=== PATIENT | male | born 1960 | race Caucasian/White ===

== ENCOUNTER → 2018-11-08 | Outpatient (CLI) | payer OTHER ==
[~2018-11-08] MED LIST: No meds per pt.
[2018-11-08 15:41] LABS: BASOPHILS # (AUTO) 0.03 x10^3/uL (0-0.1); BASOPHILS % (AUTO) 1 % (0-1); EOSINOPHILS # (AUTO) 0.47 x10^3/uL (0-0.4); EOSINOPHILS % (AUTO) 8 % (1-7); LYMPHOCYTES # (AUTO) 1.65 x10^3/uL (1-3.4); LYMPHOCYTES % (AUTO) 29 % (22-44); MD NO; MEAN CORPUSCULAR HEMOGLOBIN 31.4 pg (27.5-34.5); MEAN CORPUSCULAR VOLUME 92.4 fL (81-97); MEAN PLATELET VOLUME 7.6 fL (7.4-10.4); MONOCYTES # (AUTO) 0.51 x10^3/uL (0.2-0.8); MONOCYTES % (AUTO) 9 % (2-9); NEUTROPHILS # (AUTO) 3.09 x10^3/uL (1.8-6.8); NEUTROPHILS % (AUTO) 54 % (42-75); PLATELET COUNT 290 x10^3/uL (130-400); RED BLOOD COUNT 4.68 x10^6/uL (4.38-5.82); RED CELL DISTRIBUTION WIDTH 13.2 % (9.4-14.8)
[2018-11-08 15:51] LABS: ALANINE AMINOTRANSFERASE 34 U/L (12-78); ANION GAP 6 mmol/L (5-15); CALCIUM 8.8 mg/dL (8.5-10.1); CHLORIDE 108 mmol/L (98-107); CREATININE 0.95 mg/dL (0.7-1.3)
[2018-11-08 15:56] LABS: ALKALINE PHOSPHATASE 100 U/L (45-117); BILIRUBIN,TOTAL 0.5 mg/dL (0.2-1.0); TOTAL PROTEIN 7.3 g/dL (6.4-8.2)
== END | disposition home or self-care (01) ==
LOC: STAR 14:52
PROVIDERS: ATTEND Surgery
DX: Z01.818 Encounter for other preprocedural examination (principal)
CPT/HCPCS: 36415; 80053; 82378; 85025; 93005

== ENCOUNTER 2018-11-15 10:24 | Inpatient (IN) | payer OTHER ==
[~2018-11-15] VITALS: Ht 188 cm; Wt 90.0 kg
[~2018-11-15 10:24] MED LIST changes: +BUPIVACAINE/PF 0.5% ONE; +FENTANYL PF 250 MCG/5ML ONE; +MIDAZOLAM 1 MG/ML, 2ML ONE; +SUGAMMADEX 200 MG/2 ML IVPush ONE
[2018-11-15] MEDS ORDERED: LACTATED RINGERS 1,000 ML IV SCH (10:49)
[2018-11-15 10:55] VITALS: BP 113/73
[2018-11-15] MEDS ORDERED: GABAPENTIN 300 MG CAPSULE PO ONE (11:30)
[2018-11-15] MEDS ORDERED: ACETAMINOPHEN 500 MG TABLET PO ONE (11:30)
[2018-11-15] MEDS ORDERED: FAMOTIDINE 20 MG TABLET PO ONE (11:30)
[2018-11-15] MEDS ORDERED: CEFOTETAN 2 GM ONE (11:36)
[2018-11-15] MEDS ORDERED: PROPOFOL 10 MG/ML, 20ML ONE (11:36)
[2018-11-15] MEDS ORDERED: ROCURONIUM 10 MG/ML,10ML ONE (11:36)
[2018-11-15] MEDS ORDERED: ONDANSETRON 2MG/ML, 2ML ONE (11:36)
[2018-11-15] MEDS ORDERED: SUCCINYLCHOLINE 20 MG/ML, 10ML ONE (11:36)
[2018-11-15] MEDS ORDERED: DEXAMETHASONE 4 MG/ML, 1ML ONE (11:36)
[2018-11-15] MEDS ORDERED: PROMETHAZINE 25 MG/ML, 1ML IV PRN (12:30)
[2018-11-15] MEDS ORDERED: ONDANSETRON 2MG/ML, 2ML IV PRN ×2 (12:30→15:00)
[2018-11-15] MEDS ORDERED: ONDANSETRON ODT 8 MG PO PRN (12:30)
[2018-11-15] MEDS ORDERED: OXYcodone 5 MG/5 ML ORAL.SOL UDC PO PRN (12:30)
[2018-11-15] MEDS ORDERED: LORazepam 2 MG/ML, 1ML IVPush PRN ×2 (12:30→15:00)
[2018-11-15] MEDS ORDERED: FENTANYL PF 100 MCG/2ML ONE (13:11)
[2018-11-15] MEDS ORDERED: OXYcodone 5 MG/5 ML ORAL.SOL UDC ONE (13:11)
[2018-11-15] MEDS: FENTANYL PF 100 MCG/2ML IV PRN ×2 (13:18→13:25)
[2018-11-15] MEDS ORDERED: HYDROmorphone 1 MG/ML, 1ML ONE (13:55)
[2018-11-15] MEDS: HYDROmorphone 2 MG/ML, 1ML IVPush PRN ×2 (13:57→14:04)
[2018-11-15] MEDS ORDERED: HALOPERIDOL 5 MG/ML IVPush PRN (15:00)
[2018-11-15] MEDS ORDERED: CALCIUM CARBONATE 500 MG TAB.CHEW PO PRN (15:00)
[2018-11-15] MEDS ORDERED: OXYcodone IR 5MG TABLET PO PRN ×2 (15:00)
[2018-11-15] MEDS ORDERED: DIPHENHYDRAMINE 25 MG CAPSULE PO PRN (15:00)
[2018-11-15] MEDS ORDERED: SCOPOLAMINE PATCH, 1.5MG PATCH.TD72 TD PRN (15:00)
[2018-11-15] MEDS ORDERED: DIPHENHYDRAMINE 50 MG/ML, 1ML IVPush PRN (15:00)
[2018-11-15] MEDS ORDERED: DEXAMETHASONE 4 MG/ML, 1ML IVPush PRN (15:00)
[2018-11-15] MEDS ORDERED: HYDROmorphone 1 MG/ML, 1ML IVPush PRN (15:00)
[2018-11-15] MEDS: IBUPROFEN 800 MG TABLET PO SCH ×2 (15:30→23:18)
[2018-11-15] MEDS: ACETAMINOPHEN 500 MG TABLET PO SCH ×3 (15:30→23:18)
[2018-11-15 15:34] VITALS: BP 108/64
[2018-11-15] MEDS: D5%-0.45NACL+KCL 20MEQ 1,000 ML IV SCH (17:23)
[2018-11-15 19:33] VITALS: BP 93/57
[2018-11-15 22:00] VITALS: BP 69/45
[2018-11-15] MEDS: LORazepam 1MG TABLET PO PRN (23:22)
[2018-11-16 00:49] VITALS: BP 97/62
[2018-11-16 03:06] LABS: BASOPHILS % (AUTO) 0 % (0-1); EOSINOPHILS % (AUTO) 0 % (1-7); LYMPHOCYTES % (AUTO) 8 % (22-44); MD NO; MEAN CORPUSCULAR HEMOGLOBIN 31.9 pg (27.5-34.5); MEAN PLATELET VOLUME 7.9 fL (7.4-10.4); MONOCYTES # (AUTO) 0.64 x10^3/uL (0.2-0.8); MONOCYTES % (AUTO) 7 % (2-9); NEUTROPHILS % (AUTO) 85 % (42-75); PLATELET COUNT 247 x10^3/uL (130-400); RED CELL DISTRIBUTION WIDTH 13.2 % (9.4-14.8)
[2018-11-16 03:12] LABS: ANION GAP 3 mmol/L (5-15); CALCIUM 8.3 mg/dL (8.5-10.1); CHLORIDE 107 mmol/L (98-107); CREATININE 1.05 mg/dL (0.7-1.3)
[2018-11-16 04:28] VITALS: BP 99/60
[2018-11-16] MEDS: D5%-0.45NACL+KCL 20MEQ 1,000 ML IV SCH ×2 (05:18→17:56)
[2018-11-16] MEDS: ACETAMINOPHEN 500 MG TABLET PO SCH ×4 (05:59→23:40)
[2018-11-16] MEDS: IBUPROFEN 800 MG TABLET PO SCH ×3 (07:08→21:19)
[2018-11-16 10:39] VITALS: BP 96/61
[2018-11-16] MEDS ORDERED: ENOXAPARIN 40 MG/0.4 ML SQ SCH (11:00)
[2018-11-16 15:27] VITALS: BP 103/61
[2018-11-16 19:56] VITALS: BP 99/61
[2018-11-16] MEDS: LORazepam 1MG TABLET PO PRN (23:40)
[2018-11-17 00:57] VITALS: BP 96/57
[2018-11-17] MEDS: LORazepam 1MG TABLET PO PRN ×2 (01:02→22:04)
[2018-11-17 03:21] LABS: ANION GAP 4 mmol/L (5-15); CALCIUM 7.8 mg/dL (8.5-10.1); CHLORIDE 111 mmol/L (98-107); CREATININE 0.89 mg/dL (0.7-1.3)
[2018-11-17 03:28] LABS: BASOPHILS # (AUTO) 0.01 x10^3/uL (0-0.1); BASOPHILS % (AUTO) 0 % (0-1); EOSINOPHILS # (AUTO) 0.28 x10^3/uL (0-0.4); EOSINOPHILS % (AUTO) 4 % (1-7); LYMPHOCYTES # (AUTO) 1.69 x10^3/uL (1-3.4); LYMPHOCYTES % (AUTO) 21 % (22-44); MD NO; MEAN CORPUSCULAR HEMOGLOBIN 32.3 pg (27.5-34.5); MEAN PLATELET VOLUME 7.8 fL (7.4-10.4); MONOCYTES # (AUTO) 0.58 x10^3/uL (0.2-0.8); MONOCYTES % (AUTO) 7 % (2-9); NEUTROPHILS # (AUTO) 5.58 x10^3/uL (1.8-6.8); NEUTROPHILS % (AUTO) 69 % (42-75); PLATELET COUNT 224 x10^3/uL (130-400); RED BLOOD COUNT 3.55 x10^6/uL (4.38-5.82); RED CELL DISTRIBUTION WIDTH 13.6 % (9.4-14.8)
[2018-11-17] MEDS: ACETAMINOPHEN 500 MG TABLET PO SCH ×3 (06:15→18:14)
[2018-11-17 07:30] VITALS: BP 106/69
[2018-11-17] MEDS: IBUPROFEN 800 MG TABLET PO SCH ×3 (08:50→20:20)
[2018-11-17] MEDS: D5%-0.45NACL+KCL 20MEQ 1,000 ML IV SCH ×2 (09:54→20:20)
[2018-11-17 13:26] LABS: BASOPHILS # (AUTO) 0.02 x10^3/uL (0-0.1); BASOPHILS % (AUTO) 0 % (0-1); EOSINOPHILS % (AUTO) 2 % (1-7); LYMPHOCYTES # (AUTO) 0.85 x10^3/uL (1-3.4); LYMPHOCYTES % (AUTO) 13 % (22-44); MD NO; MEAN CORPUSCULAR HEMOGLOBIN 31.4 pg (27.5-34.5); MEAN CORPUSCULAR HGB CONC 33.9 g/dL (33.2-36.2); MEAN CORPUSCULAR VOLUME 92.6 fL (81-97); MEAN PLATELET VOLUME 7.3 fL (7.4-10.4); MONOCYTES # (AUTO) 0.54 x10^3/uL (0.2-0.8); MONOCYTES % (AUTO) 8 % (2-9); NEUTROPHILS # (AUTO) 5.13 x10^3/uL (1.8-6.8); NEUTROPHILS % (AUTO) 77 % (42-75); PLATELET COUNT 229 x10^3/uL (130-400); RED BLOOD COUNT 3.63 x10^6/uL (4.38-5.82); RED CELL DISTRIBUTION WIDTH 13.4 % (9.4-14.8)
[2018-11-17 13:55] VITALS: BP 100/61
[2018-11-17 21:45] VITALS: BP 104/69
[2018-11-18 03:38] LABS: BASOPHILS # (AUTO) 0.02 x10^3/uL (0-0.1); BASOPHILS % (AUTO) 0 % (0-1); EOSINOPHILS # (AUTO) 0.25 x10^3/uL (0-0.4); EOSINOPHILS % (AUTO) 4 % (1-7); LYMPHOCYTES # (AUTO) 1.37 x10^3/uL (1-3.4); LYMPHOCYTES % (AUTO) 22 % (22-44); MD NO; MEAN CORPUSCULAR HEMOGLOBIN 32.1 pg (27.5-34.5); MEAN CORPUSCULAR HGB CONC 34.7 g/dL (33.2-36.2); MEAN CORPUSCULAR VOLUME 92.5 fL (81-97); MEAN PLATELET VOLUME 7.9 fL (7.4-10.4); MONOCYTES # (AUTO) 0.53 x10^3/uL (0.2-0.8); MONOCYTES % (AUTO) 8 % (2-9); NEUTROPHILS # (AUTO) 4.19 x10^3/uL (1.8-6.8); NEUTROPHILS % (AUTO) 66 % (42-75); PLATELET COUNT 212 x10^3/uL (130-400); RED CELL DISTRIBUTION WIDTH 13.6 % (9.4-14.8)
[2018-11-18 03:45] LABS: ANION GAP 4 mmol/L (5-15); CALCIUM 8.4 mg/dL (8.5-10.1); CHLORIDE 109 mmol/L (98-107); CREATININE 0.73 mg/dL (0.7-1.3)
[2018-11-18 03:55] VITALS: BP 116/75
[2018-11-18] MEDS: ACETAMINOPHEN 500 MG TABLET PO SCH ×3 (05:50→07:30)
[2018-11-18] MEDS ORDERED: OXYC-302 PO (08:26)
[2018-11-18] MEDS ORDERED: CALC500T PO (08:26)
== END 2018-11-18 08:50 | disposition home or self-care (01) | DRG 331 ==
LOC: ORIP 10:24 → 4NOR 14:25 → DCLOUNGE 11-18 08:35
PROVIDERS: ADMIT Surgery; ATTEND Surgery
PROC: 3E0T3BZ Introduction of Anesthetic Agent into Peripheral Nerves and Plexi, Percutaneous Approach (ICD-10-PCS; 2018-11-15)
PROC: 0DBF4ZZ Excision of Right Large Intestine, Percutaneous Endoscopic Approach (ICD-10-PCS; principal; 2018-11-15 12:00)
DX: D12.0 Benign neoplasm of cecum (principal); D37.5 Neoplasm of uncertain behavior of rectum; Z80.0 Family history of malignant neoplasm of digestive organs
CPT/HCPCS: 36415; J3490; 80048; 85025; 88307; G0378; J1100; J1170; J1650; J2250; J2405; J2704; J3010; J0330; J3480; J7120